=== PATIENT | male | born 1955 | race Caucasian/White ===

== ENCOUNTER 2021-08-11 07:05 | Emergency (ER) | payer OTHER ==
[~2021-08-11] VITALS: Ht 167.6 cm; Wt 77.1 kg
[2021-08-11 07:11] VITALS: BP 199/105
--- NOTE | 2021-08-11 07:17 | NUR ---
TO BED 9, AMBULATORY
--- NOTE | 2021-08-11 07:21 | NUR ---
DR. FULLER BEDSIDE EVALUATING PT
[2021-08-11] MEDS ORDERED: ONDANSETRON 4 MG/2 ML VIAL IVP ONE (07:30)
[2021-08-11] MEDS ORDERED: MORPHINE SULFATE 4 MG/ML SYR IVP ONE (07:30)
[2021-08-11] MEDS ORDERED: NACL 0.9% 1,000 ML IV SCH (07:30)
--- NOTE | 2021-08-11 07:30 | NUR ---
66 Y MALE FROM HOME DUE TO ABDOMINAL PAIN X2 WEEKS. PT STATED HE HAS HAD ABDOMINAL PAIN THAT HAS GOTTEN WORSE LAST NIGHT. PT +N/+V/-D. PT DENIES FEVER/CHILLS, CHEST PAIN, SOB AT THIS TIME. UPON ASSESSMENT BOWEL SOUNDS ACTIVE AND NO TENDERNESS UPON PALPATION. PT STATED LAST BM WAS TODAY, BUT WAS SMALLER THAN USUAL. PT STATED PAIN IS 8/10 FELT IN MID-ABDOMEN THAT IS CRAMPING LIKE PAIN. SKIN DRY AND INTACT. BREATH SOUNDS UNLABORED AND EQUAL CHEST RISE AND FALL NOTED PMH: HTN, DM NKA
--- NOTE | 2021-08-11 07:34 | NUR ---
PT TAKEN TO CT [facility]IA [facility]
--- NOTE | 2021-08-11 07:42 | NUR ---
PT RETURNED TO BED [address] [facility]
--- NOTE | 2021-08-11 07:45 | NUR ---
20 G IV ESTABLISHED IN L AC. BLOOD WORK COLLECTED FROM IV AND HANDED TO [facility] [employer] [facility]
[2021-08-11 08:03] LABS: BASOPHILS % (AUTO) 0.3 % (0.0-2.0); EOSINOPHILS # (AUTO) 0.3 K/uL (0-0.4); EOSINOPHILS % (AUTO) 3.4 % (0.0-4.0); HEMATOCRIT 40.1 % (36-52); HEMOGLOBIN 14.1 g/dL (12.0-18.0); LYMPHOCYTES # (AUTO) 2.1 K/uL (2.0-11.5); LYMPHOCYTES % (AUTO) 23.8 % (20.5-51.1); MEAN CORPUSCULAR HEMOGLOBIN 31 pg (27-31); MEAN CORPUSCULAR HGB CONC 35 g/dL (33-37); MEAN CORPUSCULAR VOLUME 87.5 fL (80-94); MONOCYTES # (AUTO) 0.5 K/uL (0.8-1.0); MONOCYTES % (AUTO) 5.8 % (1.7-9.3); NEUTROPHILS # (AUTO) 5.9 K/uL (1.8-7.7); NEUTROPHILS % (AUTO) 66.7 % (42.2-75.2); PLATELET COUNT (AUTO) 264 K/uL (140-450); RED BLOOD CELL COUNT(AUTO) 4.58 MIL/uL (4.20-6.10); RED CELL DISTRIBUTION WIDTH 12.9 % (11.6-13.7); WHITE BLOOD COUNT (AUTO) 8.8 K/uL (4.8-10.8)
[2021-08-11 08:43] LABS: ALBUMIN 3.6 g/dL (3.4-5.0); ANION GAP 13.3 (8-16); CARBON DIOXIDE 27.7 mmol/L (21-32); CREATININE 1.2 mg/dL (0.6-1.3); TOTAL BILIRUBIN 0.7 mg/dL (0.0-1.0)
--- NOTE | 2021-08-11 08:44 | NUR ---
PT AMBULATED TO RESTROOM. PT PROVIDED WITH URINE CUP
--- NOTE | 2021-08-11 08:54 | NUR ---
URINE COLLECTED AND WALKED OVER TO LAB
--- NOTE | 2021-08-11 08:57 | NUR ---
Patient appears to be resting comfortably in bed. Vital Signs within normal limits. Respirations even and unlabored. ER MD MADE AWARE OF PATIENT HIGH BLOOD PRESSURE
[2021-08-11] MEDS ORDERED: ENALAPRILAT 2.5 MG/2 ML VIAL IVP ONE (09:15)
--- NOTE | 2021-08-11 09:22 | NUR ---
Patient appears to be resting comfortably in bed. Vital Signs within normal limits. Respirations even and unlabored. MD MADE AWARE OF DECREASE IN PT BP
[2021-08-11] MEDS ORDERED: GLYPS RC (09:26)
[2021-08-11] MEDS ORDERED: LACT-103 PO (09:26)
[2021-08-11 09:37] VITALS: BP 161/88
--- NOTE | 2021-08-11 09:37 | NUR ---
Patient discharged with v/s stable. Written and verbal after care instructions given and explained. Patient alert, oriented and verbalized understanding of instructions. Ambulatory with steady gait. All questions addressed prior to discharge. ID band removed. Patient advised to follow up with PMD. Rx of GLYCERIN AND LACTULOSE given. Patient educated on indication of medication including possible reaction and side effects. Opportunity to ask questions provided and answered.
[2021-08-11 11:29] LABS: APPEARANCE,URINE CLEAR (CLEAR); BILIRUBIN,URINE NEGATIVE (NEGATIVE); BLOOD, URINE NEGATIVE (NEGATIVE); COLOR,URINE YELLOW (YELLOW); LEUKOCYTE ESTERASE ,URINE NEGATIVE (NEGATIVE); NITRITE, URINE NEGATIVE (NEGATIVE); PH,URINE 5.5 (5.0-9.0); UGLUCOSE TRACE (NEGATIVE)
[2021-08-11 13:55] LABS: RBC,URINE NONE SEEN /HPF (0-5); WBC,URINE NONE SEEN /HPF (0-5)
== END 2021-08-11 09:37 | disposition home or self-care (01) ==
LOC: MED 07:05
DX: K59.00 Constipation, unspecified (principal); R11.2 Nausea with vomiting, unspecified; E11.9 Type 2 diabetes mellitus without complications; I10 Essential (primary) hypertension; K21.9 Gastro-esophageal reflux disease without esophagitis; Z90.49 Acquired absence of other specified parts of digestive tract; Z79.84 Long term (current) use of oral hypoglycemic drugs; Z79.899 Other long term (current) drug therapy
CPT/HCPCS: 36415; 74176; 80053; 81001; 83605; 83690; 85025; 87040; 96361; 96374; 96375; 99284; J2270; J2405; J7030

== ENCOUNTER 2021-08-16 21:03 | Emergency (ER) | payer OTHER ==
[~2021-08-16] VITALS: Ht 165.1 cm; Wt 78.9 kg
[~2021-08-16 21:03] MED LIST: GLYPS RC; LACT-103 PO
[2021-08-16 21:12] VITALS: BP 169/108
--- NOTE | 2021-08-16 21:21 | NUR ---
PATIENT TO THE BATHROOM FOR URINE COLLECTION AND PATIENT TO LOBBY
--- NOTE | 2021-08-16 22:16 | NUR ---
PT AMBULATED TO BED 6
[2021-08-16] MEDS ORDERED: PEG4000P3 PO ×2 (22:59→23:33)
--- NOTE | 2021-08-16 23:00 | NUR ---
PT REQUESTING CHANGE OF PHARMACY BECAUSE IT IS TOO FAR.
--- NOTE | 2021-08-16 23:35 | NUR ---
Patient discharged with v/s stable. Written and verbal after care instructions given and explained. Patient alert, oriented and verbalized understanding of instructions. Ambulatory with steady gait. All questions addressed prior to discharge. ID band removed. Patient advised to follow up with PMD. Rx of GOLYTELY given. Patient educated on indication of medication including possible reaction and side effects. Opportunity to ask questions provided and answered.
--- NOTE | 2021-08-17 00:45 | NUR ---
Note jamal in EDM - 08/17/21 at 0047 by [id number] Patient discharged with v/s stable. Written and verbal after care instructions given and explained. Patient alert, oriented and verbalized understanding of instructions. Ambulatory with steady gait. All questions addressed prior to discharge. ID band removed. Patient advised to follow up with PMD. Rx of BEVERLEY given. Patient educated on indication of medication including possible reaction and side effects. Opportunity to ask questions provided and answered.
[2021-08-17 01:43] VITALS: BP 159/100
== END 2021-08-16 23:35 | disposition home or self-care (01) ==
LOC: MED 21:03
DX: K59.00 Constipation, unspecified (principal); E11.9 Type 2 diabetes mellitus without complications; I10 Essential (primary) hypertension; Z90.49 Acquired absence of other specified parts of digestive tract; Z79.899 Other long term (current) drug therapy
CPT/HCPCS: 99283